=== PATIENT | female | born 1995 | race Caucasian/White ===

== ENCOUNTER 2020-10-20 22:24 | Emergency (ER) | payer OTHER ==
[2020-10-20 22:31] VITALS: BP 115/72; PULSE 69; TEMP 97.8; BMI 20.5
[2020-10-20] MEDS ORDERED: ACETAMINOPHEN 325 MG TABLET (FP) PO ONE (23:28)
[2020-10-20] MEDS ORDERED: DIPHTH,PERTUSS(ACELL),TET 0.5 ML DISP.SYRIN IM ONE ×2 (23:28→23:35)
[2020-10-20] MEDS ORDERED: ACETAMINOPHEN 325 MG TABLET (FP) ONE (23:35)
[2020-10-20] MEDS ORDERED: CEPHALEXIN MONOHYDRATE 500 MG CAPSULE (UD) PO ONE (23:51)
[2020-10-21] MEDS ORDERED: CEPHALEXIN MONOHYDRATE 500 MG CAPSULE (UD) ONE (00:40)
== END 2020-10-21 00:50 | disposition home or self-care (01) ==
LOC: JER 22:24
PROC: 3E0234Z Introduction of Serum, Toxoid and Vaccine into Muscle, Percutaneous Approach (ICD-10-PCS; principal; 2020-10-20)
DX: S01.91XA Laceration without foreign body of unspecified part of head, initial encounter (principal)
CPT/HCPCS: 90715; 99284-25